=== PATIENT | female | born 1945 | race Caucasian/White ===

== ENCOUNTER 2019-01-09 09:37 | Day surgery (SDC) | payer MEDICARE ==
[2019-01-09] MEDS ORDERED: Lactated Ringers 1,000 ML IV ONE ×2 (09:46→13:25)
[2019-01-09] MEDS ORDERED: Lactated Ringers 1,000 ML IV SCH (10:00)
[2019-01-09] MEDS ORDERED: DIPRIVAN 200 MG/20 ML IV ONE ×3 (11:47→12:22)
[2019-01-09 14:23] LABS: 027 TOX PROD PRESUMPTIVE NEGATIVE (NEGATIVE); TOXIGENIC C. DIFF ORG NEGATIVE (NEGATIVE)
[2019-01-09 16:04] VITALS: BP 160/88; PULSE 79; O2SAT 93
--- NOTE | 2019-01-09 16:56 | XRAY ---
Exam: Air contrast barium enema from 01/09/2019. Total fluoroscopy time: 4.9 minutes. Comparison: None. Indication: 73-year-old female with incomplete colonoscopy, history of diverticulosis and prior hysterectomy. The patient gives a history of occasional rectal bleeding and constipation with some change of recent bowel habits. Findings: 2 supine rx specialist images of the abdomen reveal an unremarkable bowel gas pattern. A mild mid lumbar rotary dextroscoliosis is seen. Mild to moderate multilevel degenerative disc disease is seen throughout the lumbar spine. No hepatosplenomegaly is seen. No suspicious abdominal calcifications are seen. The entire colon was prepared using double contrast technique. I see moderate tortuosity within the sigmoid colon and the right hemicolon. No evidence of obstruction or fixed stenosing lesions are seen within the colon. Some scattered diverticula are noted within the sigmoid colon consistent with diverticulosis. Also, a couple small diverticula are seen within the splenic flexure. No significant intraluminal polypoid masses are seen within the colon. The cecum distended well. No reflux of barium into the distal small bowel was seen. Impression: 1. Mild scattered diverticulosis seen within the left hemicolon. 2. No colon obstruction, abnormal colonic stenosing lesions, or sizable intraluminal colon polyps are seen. 3. Some tortuosity of the colon course was seen within both the ascending colon and sigmoid colon.
--- NOTE | 2019-01-10 08:53 | OP ---
PROCEDURE DATE/TIME: 01/09/2019 1152 PREOPERATIVE DIAGNOSES: 1) Reflux disease. 2) Abdominal pain. 3) Change in bowel function. POSTOPERATIVE DIAGNOSES: 1) Peptic ulcer disease with multiple antral ulcers. 2) Mild gastroesophageal reflux disease. 3) Tortuous redundant colon with diverticulosis. PROCEDURES: 1) EGD with biopsy. 2) Colonoscopy to ascending colon. PROCEDURE PERFORMED BY: Naomy Napoles M.D. ANESTHESIA: MAC. ESTIMATED BLOOD LOSS: Minimal. COMPLICATIONS: None. SPECIMENS: 1) Antral peptic ulcer biopsies; rule out Helicobacter pylori. 2) Stool sent for Clostridium difficile, ova and parasite, and culture. HISTORY: This is a 73 year-old female who presents for EGD and colonoscopy due to GI complaints as well as abdominal pain. She has had a change in bowel function as well as reflux disease. Risks, benefits, alternatives and H&P reviewed with her and confirmed. DESCRIPTION OF PROCEDURE: She was then brought back to the endoscopy suite and laid in the left lateral decubitus position. A complete time out performed. The scope gently introduced into the mouth, oropharynx and down into the esophagus, stomach and duodenum. The duodenum was normal. In the stomach there is an ulcer that is approximately 1.25 cm and then two smaller ulcers more distal to this that are less than 1 cm. None of them are actively bleeding at this time. They appear to be benign. However they are inflamed, active and they do have some surrounding mild gastritis. The remainder of the stomach looks normal except for a few very tiny benign appearing gastric polyps. Outside of this our retroflex view was normal. We then took multiple biopsies by the ulcers and sent these to pathology also to rule out Helicobacter pylori disease. We confirmed hemostasis and then the scope was carefully withdrawn to the distal esophagus. The patient does have some mild reflux changes here. She does not have any gross Esposito's disease. The remainder of the esophagus was normal. The scope was able to be removed. The patient tolerated this part of the procedure well. She was then repositioned for colonoscopy. First a rectal exam was done. The patient does have moderate external hemorrhoidal disease. The scope was then inserted and gently advanced. The prep was satisfactory for exam. However, the patient had an extremely tortuous and redundant colon. At the level of approximately the ascending colon, I was not able to easily advance the scope. We did throughout the procedure attempt patient repositioning and gentle abdominal pressure to help navigate the scope and we were able to get to the level of the ascending colon but not farther. At this point I then carefully withdrew the scope taking a circumferential view and trying to see this amount of colon as best as possible. She did have some liquid stool that we had to suction and irrigate. The prep was satisfactory for review for medium and large lesions. A very small or very flat lesion could be missed from the prep but overall again this was satisfactory. She does have some mild diverticulosis outside of this. The colon mucosa was very healthy and I did not see any obvious polyps or lesions. The scope was then completely withdrawn. The patient tolerated the procedure very well. There were no immediate complications. Due to the colonoscopy being incomplete, I have ordered a barium enema for her. I have also placed her on proton pump inhibitor and Carafate therapy due to the peptic ulcer disease and reflux. She is going to see me in the office to discuss her antral biopsy results as well as her barium enema and then plan for another EGD in approximately three months and tentatively a colonoscopy in approximately five years, sooner if there is something more concerning on the enema that we need to further explore.
[2019-01-10 11:19] LABS: Source: Feces
[2019-01-10 12:15] LABS: Giardia Antigen EIA Negative (Negative)
== END 2019-01-09 16:30 | disposition home or self-care (01) ==
LOC: SDC 09:37
PROVIDERS: ATTEND Surgery
DX: K25.9 Gastric ulcer, unspecified as acute or chronic, without hemorrhage or perforation (principal); K21.9 Gastro-esophageal reflux disease without esophagitis; K57.30 Diverticulosis of large intestine without perforation or abscess without bleeding; K64.4 Residual hemorrhoidal skin tags; R19.4 Change in bowel habit; R10.11 Right upper quadrant pain; E07.9 Disorder of thyroid, unspecified
CPT/HCPCS: 36415; 74270; 87045; 87046; 87177; 87209; 87335; 87493; 99100; J2704

== ENCOUNTER 2019-03-13 09:37 | Day surgery (SDC) | payer MEDICARE ==
[2019-03-13] MEDS ORDERED: Lactated Ringers 1,000 ML IV SCH (10:00)
[2019-03-13] MEDS ORDERED: DIPRIVAN 200 MG/20 ML IV ONE (11:46)
[2019-03-13] MEDS ORDERED: Ketamine HCl 50 MG/ML ONE (11:47)
[2019-03-13 12:57] VITALS: PULSE 53
[2019-03-13 13:20] VITALS: BP 142/66; O2SAT 99
--- NOTE | 2019-03-14 10:04 | OP ---
SURGERY DATE: 03/13/19 SURGERY TIME: 1145 PREOPERATIVE DIAGNOSIS: 1. HISTORY OF PEPTIC ULCER DISEASE. POSTOPERATIVE DIAGNOSIS: 1. GASTRITIS. 2. RESOLVED PEPTIC ULCER DISEASE. PROCEDURE: 1. EGD with biopsy. SURGEON: Dr. Naomy Napoles. ANESTHESIA: MAC. ESTIMATED BLOOD LOSS: Minimal. COMPLICATIONS: None. SPECIMENS: 1. Antral biopsy rule out Helicobacter pylori. PROCEDURE DETAILS: This is a 73 y/o female, who has a history of peptic ulcer disease and abdominal pain, who presents for EGD to ensure ulcer resolution. She has also had some intermittent abdominal pain since starting therapy. Risks, benefits, and alternatives regarding EGD have been discussed with the patient. H&P consent reviewed with her, confirmed. She was then brought back to the endoscopy suite. Laid in the left lateral decubitus position. Complete time-out performed. The scope gently introduced into the mouth, oropharynx, down into the esophagus, stomach, and duodenum. The duodenum is normal. In the stomach, the ulcers have all healed. She only has some residual mild gastritis. This is most significant in the antrum, but it is patchy throughout the stomach. She also has a couple very tiny gastric polyps which are less than 3-4 mm in size, very friendly looking. She has no masses. No other concerning findings. No blood. I took an antral biopsy since she is still symptomatic and sent this to pathology to rule out any Helicobacter pylori infection. This site was hemostatic and then we carefully withdrew the scope. She has some mild reflux changes, but very minimal. No sign of Esposito's disease and no obvious esophagitis. The scope was then completely withdrawn. The patient tolerated the procedure very well. There were no immediate complications. PLAN: Plan will be for another EGD on an as needed basis. She is going to continue her Carafate and proton pump inhibitor therapy and then we will wean her off the Carafate in approximately 1 month and see how she is doing.
== END 2019-03-13 13:29 | disposition home or self-care (01) ==
LOC: SDC 09:37
PROVIDERS: ATTEND Surgery
DX: K29.70 Gastritis, unspecified, without bleeding (principal); K31.7 Polyp of stomach and duodenum; Z87.11 Personal history of peptic ulcer disease
CPT/HCPCS: 99100; J2704

== ENCOUNTER 2021-07-15 15:38 | Emergency (ER) | payer MEDICARE ==
[2021-07-15] MEDS ORDERED: Sodium Chloride 0.9% 1000 ML 1,000 ML IV STA (15:56)
[2021-07-15] MEDS ORDERED: solu-MEDROL 125 MG, Sterile H2O 10 ml 2 ML IV ONE ×2 (15:56)
--- NOTE | 2021-07-15 16:24 | XRAY ---
Indication: Cough. Positive Covid 19. Comparison: June 24, 2017. Portable chest again demonstrates a few incidental calcified granulomas. No focal infiltrate, consolidation, or large effusion. Heart not enlarged. Bony thorax intact again with mild osteopenia and degenerative changes. Impression: Continued nonacute chest with chronic features.
[2021-07-15] MEDS ORDERED: solu-MEDROL ONE ×2 (16:30→16:32)
[2021-07-15] MEDS ORDERED: Sodium Chloride 0.9% 1000 ML 1,000 ML ONE (16:30)
[2021-07-15] MEDS ORDERED: Sterile H2O 10 ml IJ ONE (16:32)
[2021-07-15 16:33] LABS: Absolute Neutrophil Ct (ANC) 3.31 (1.4-6.9); Basophil (Absolute #) 0.01 (0-0.4); Eosinophil (Absolute #) 0.12 (0-0.5); Hemoglobin 12.5 gm/dl (12.0-16.0); Lymphocyte (Absolute #) 1.71 (1.0-4.6); Lymphocytes % 28.4 % (24.0-44.0); Mean Cell Volume 92.2 fl (78-100); Mean Corpuscular Hemoglobin 30.3 pg (26-32); Mean Corpuscular Hgb Concent. 32.9 g/dl (32-36); Mean Platelet Volume 9.3 fl (7.5-11.0); Monocyte (Absolute #) 0.87 (0.0-1.3); Monocytes % 14.5 % (0.0-12.0); Neutrophil % 54.9 % (36.0-66.0); Platelet Count 221 K/mm3 (150-450); Red Blood Count 4.12 M/mm3 (4.1-5.4); Red Cell Distribution Width 12.3 % (11.5-14.0)
[2021-07-15 16:38] LABS: INR 1.05 (0.8-3.0); PROTIME 12.4 SECONDS (9.4-12.5)
[2021-07-15 16:51] LABS: ALBUMIN 4.3 g/dL (3.5-5.0); ALKALINE PHOSPHATASE 72 U/L (38-126); ANION GAP 12.8 MEQ/L (5-15); BLOOD UREA NITROGEN 16 mg/dL (7-17); CHLORIDE 89 mmol/L (98-107); Carbon Dioxide 28 mmol/L (22-30); Creatinine 1 0.88 mg/dL (0.52-1.04); EST GLOMERULAR FILTRATION RATE > 60.0 ML/MIN; Glucose 110 mg/dL (74-106); NT PRO BNP 446 pg/mL (0-900); Potassium 3.6 mmol/L (3.5-5.1); SGOT/AST 23 U/L (14-36); SGPT/ALT 17 U/L (0-35); SODIUM 126 mmol/L (137-145); Total Protein 6.9 g/dL (6.3-8.2)
[2021-07-15 17:11] VITALS: BP 148/53; PULSE 52; O2SAT 96
--- NOTE | 2021-07-15 17:35 | ERPHSYRPT ---
- History of Present Illness Time Seen by Provider: 07/15/21 16:00 Source: patient Exam Limitations: no limitations Patient Subjective Stated Complaint: pt here for cough, congestion, weakness for 4 days now, pt states her and spouse were covid postive today, Triage Nursing Assessment: pt alert, resp easy, nasal congestion, dry cough. Physician History: Patient is a 75-year-old female who presents with a complaint of cough and some shortness of breath. She was diagnosed this morning at Dr. Cortez office with COVID 19. Her who is 79 years old likewise have COVID he also has severe dementia. They have been sick for 2 days. Timing/Duration: day(s) (3) Cough Quality/Degree: dry cough Possible Cause: illness exposure Modifying Factors: Improves With: coughing Associated Symptoms: cough, headache, No fever, No chills Allergies/Adverse Reactions: codeine Allergy (Mild, Verified 07/15/21 16:05) latex Allergy (Mild, Verified 07/15/21 16:05) Rash Home Medications: Cetirizine HCl [Zyrtec] 1 tab PO DAILY 04/17/16 [History] Docusate Sodium 100 mg [Colace 100 MG] 100 mg PO BID 04/17/16 [History] Furosemide 40 mg [Lasix 40 MG] 20 mg PO BID 04/17/16 [History] Levothyroxine Sodium 50 Mcg [Synthroid 50 Mcg] 1 tab PO DAILY 04/17/16 [History] Losartan/Hydrochlorothiazide [Losartan-Hctz 100-25 mg Tab] 1 tab PO DAILY 04/17/16 [History] Lysine 1 tab PO DAILY 04/17/16 [History] Meloxicam 7.5 mg [Mobic 7.5 MG] 1 tab PO DAILY 04/17/16 [History] Pravastatin Sodium 1 tab PO DAILY 04/17/16 [History] Metoprolol Tartrate 25 mg [Lopressor 25MG Tab] 25 mg PO BID 10/09/19 [History] Potassium Chloride [K-Dur] 10 meq PO BID 10/09/19 [History] Sucralfate 1 gm [Carafate 1 GM] 1 g PO BID PRN 10/09/19 [History] Hx Tetanus, Diphtheria Vaccination/Date Given: No Hx Influenza Vaccination/Date Given: Yes Hx Pneumococcal Vaccination/Date Given: No Immunizations Up to Date: Yes Travel Risk - International Travel Have you traveled outside of the country in past 3 weeks: No - Coronavirus Screening Are you exhibiting any of the following symptoms?: Yes Symptoms: Cough: New Onset, Loss of Taste or Smell Close contact with a COVID-19 positive Pt in past 14-21 Days: Yes - Vaccine Status Have you recieved a Covid-19 vaccination: No - Review of Systems Constitutional: No Fever, No Chills Eyes: No Symptoms Ears, Nose, & Throat: Nose Congestion, Nose Discharge Respiratory: Cough, No Dyspnea Cardiac: No Chest Pain, No Edema, No Syncope Abdominal/Gastrointestinal: No Abdominal Pain, No Nausea, No Vomiting, No Diarrhea Genitourinary Symptoms: No Dysuria Musculoskeletal: No Back Pain, No Neck Pain Skin: No Rash Neurological: No Dizziness, No Focal Weakness, No Sensory Changes Psychological: No Symptoms Endocrine: No Symptoms All Other Systems: Reviewed and Negative - Past Medical History Pertinent Past Medical History: Yes Neurological History: No Pertinent History ENT History: Cataracts, Glaucoma Cardiac History: Hypertension, Myocardial Infarction ([place]) Respiratory History: Bronchitis, COPD, Pneumonia Endocrine Medical History: Hypothyroidism Musculoskeletal History: Arthritis, Osteoarthritis GI Medical History: Polyps, Ulcer History: No Pertinent History Psycho-Social History: No Pertinent History Female Reproductive Disorders: Fibroids Other Medical History: 2 lumps removed from breasts, nerve pain in lateral upper R thigh, anemia, kidney probs in high school, degenerative disc disease. MIx 2. peptic and duodenal ulcer in past - Past Surgical History Past Surgical History: Yes Neuro Surgical History: No Pertinent History Cardiac: Cardiac Catheterization Respiratory: No Pertinent History Gastrointestinal: No Pertinent History Genitourinary: Other Musculoskeletal: Orthopedic Surgery Female Surgical History: Hysterectomy, Dilation & Curettage Other Surgical History: knee surgery, tympanoplasty, "stretched bladder or urethra". 2 breast lumpectomies - Social History Smoking Status: Never smoker Exposure to second hand smoke: No Drug Use: none Patient Lives Alone: No - Female History Hx Last Menstrual Period: psot - Nursing Vital Signs Nursing Vital Signs: Initial Vital Signs Temperature 97.0 F 07/15/21 15:51 Pulse Rate 55 L 07/15/21 15:51 Respiratory Rate 18 07/15/21 15:51 Blood Pressure 163/59 07/15/21 15:51 O2 Sat by Pulse Oximetry 96 07/15/21 15:51 Pain Scale Pain Intensity 0 - Physical Exam General Appearance: mild distress, alert Eye Exam: PERRL/EOMI, eyes nml inspection Ears, Nose, Throat Exam: normal ENT inspection, TMs normal, pharynx normal, moist mucous membranes Neck Exam: normal inspection, non-tender, supple, full range of motion Respiratory Exam: normal breath sounds, lungs clear, No respiratory distress Cardiovascular Exam: regular rate/rhythm, normal heart sounds Gastrointestinal/Abdomen Exam: soft, No tenderness Back Exam: normal inspection, No CVA tenderness, No vertebral tenderness Extremity Exam: normal inspection, normal range of motion Neurologic Exam: alert, oriented x 3, cooperative, normal mood/affect, sensation nml, No motor deficits Skin Exam: normal color, warm, dry, No rash Lymphatic Exam: No adenopathy SpO2: 96 - Course Nursing assessment & vital signs reviewed: Yes EKG Interpreted by Me: RATE (54), Sinus Rhythm, LAFB, Non-specific ST Changes - Radiology Exams Chest X-ray Interpretation: Other (No acute findings) Ordered Tests: Active Orders 24 hr Category Date Time Status EKG-ER Only STAT Care 07/15/21 15:56 Active IV Insertion STAT Care 07/15/21 15:56 Active CHEST 1 VIEW (PORTABLE) Stat Exams 07/15/21 15:57 Completed CBC W DIFF Stat Lab 07/15/21 16:15 Completed CMP Stat Lab 07/15/21 16:15 Completed D-DIMER QUANTITATIVE Stat Lab 07/15/21 16:15 Completed Lactic Acid Stat Lab 07/15/21 15:56 Completed NT PRO BNP Stat Lab 07/15/21 16:15 Completed PROTIME WITH INR Stat Lab 07/15/21 16:15 Completed TROPONIN Q3H Lab 07/15/21 16:15 Completed TROPONIN Q3H Lab 07/15/21 19:00 Ordered TROPONIN Q3H Lab 07/15/21 22:00 Ordered TROPONIN Q3H Lab 07/16/21 01:00 Ordered TROPONIN Q3H Lab 07/16/21 04:00 Ordered UA W/RFX UR CULTURE Stat Lab 07/15/21 15:57 Ordered Medication Summary Discontinued Medications Generic Name Dose Route Start Last Admin Trade Name Freq PRN Reason Stop Dose Admin Methylprednisolone Sodium 0 mg 07/15/21 15:56 07/15/21 16:33 Succinate 125 mg/ Sterile IV 07/15/21 15:57 125 mg Water 2 ml STAT ONE Administration Sodium Chloride 1,000 mls @ 999 mls/hr 07/15/21 15:56 07/15/21 16:33 Sodium Chloride 0.9% 1000 Ml IV 07/15/21 16:56 999 mls/hr .Q1H1M STA Administration Sodium Chloride Confirm 07/15/21 16:30 Sodium Chloride 0.9% 1000 Ml Administered 07/15/21 16:31 Dose 1,000 mls @ ud .ROUTE .STK-MED ONE Methylprednisolone Sodium Succinate Confirm 07/15/21 16:30 Methylprednis Sod Succ 125 Mg/2 Ml Vial Administered 07/15/21 16:31 Dose 125 mg .ROUTE .STK-MED ONE Methylprednisolone Sodium Succinate Confirm 07/15/21 16:32 Methylprednis Sod Succ 125 Mg/2 Ml Vial Administered 07/15/21 16:33 Dose 125 mg .ROUTE .STK-MED ONE Sterile Water Confirm 07/15/21 16:32 Water For Injection,Sterile 10 Ml Vial Administered 07/15/21 16:33 Dose 10 ml IJ .STK-MED ONE Lab/Rad Data: Laboratory Result Diagrams 07/15/21 16:15 07/15/21 16:15 Laboratory Results 07/15/21 07/15/21 07/15/21 Range/Units 16:15 16:15 16:15 WBC (4.0-10.5) K/mm3 RBC (4.1-5.4) M/mm3 Hgb (12.0-16.0) gm/dl Hct (35-47) % MCV (78-100) fl MCH (26-32) pg MCHC (32-36) g/dl RDW (11.5-14.0) % Plt Count (150-450) K/mm3 MPV (7.5-11.0) fl Gran % (36.0-66.0) % Eos # (Auto) (0-0.5) Absolute Lymphs (auto) (1.0-4.6) Absolute Monos (auto) (0.0-1.3) Lymphocytes % (24.0-44.0) % Monocytes % (0.0-12.0) % Eosinophils % (0.00-5.0) % Basophils % (0.0-0.4) % Absolute Granulocytes (1.4-6.9) Basophils # (0-0.4) PT 12.4 (9.4-12.5) SECONDS INR 1.05 (0.8-3.0) D-Dimer 350 (215-500) ng/mL Sodium 126 L (137-145) mmol/L Potassium 3.6 (3.5-5.1) mmol/L Chloride 89 L (98-107) mmol/L Carbon Dioxide 28 (22-30) mmol/L Anion Gap 12.8 (5-15) MEQ/L BUN 16 (7-17) mg/dL Creatinine 0.88 (0.52-1.04) mg/dL Estimated GFR > 60.0 ML/MIN Glucose 110 H (74-106) mg/dL Lactic Acid (0.4-2.0) Calcium 9.0 (8.4-10.2) mg/dL Total Bilirubin 0.60 (0.2-1.3) mg/dL AST 23 (14-36) U/L ALT 17 (0-35) U/L Alkaline Phosphatase 72 (38-126) U/L Troponin I < 0.012 (0.000-0.034) ng/mL NT-Pro-B Natriuret Pep 446 (0-900) pg/mL Serum Total Protein 6.9 (6.3-8.2) g/dL Albumin 4.3 (3.5-5.0) g/dL 07/15/21 07/15/21 Range/Units 16:15 15:56 WBC 6.0 (4.0-10.5) K/mm3 RBC 4.12 (4.1-5.4) M/mm3 Hgb 12.5 (12.0-16.0) gm/dl Hct 38.0 (35-47) % MCV 92.2 (78-100) fl MCH 30.3 (26-32) pg MCHC 32.9 (32-36) g/dl RDW 12.3 (11.5-14.0) % Plt Count 221 (150-450) K/mm3 MPV 9.3 (7.5-11.0) fl Gran % 54.9 (36.0-66.0) % Eos # (Auto) 0.12 (0-0.5) Absolute Lymphs (auto) 1.71 (1.0-4.6) Absolute Monos (auto) 0.87 (0.0-1.3) Lymphocytes % 28.4 (24.0-44.0) % Monocytes % 14.5 H (0.0-12.0) % Eosinophils % 2.0 (0.00-5.0) % Basophils % 0.2 (0.0-0.4) % Absolute Granulocytes 3.31 (1.4-6.9) Basophils # 0.01 (0-0.4) PT (9.4-12.5) SECONDS INR (0.8-3.0) D-Dimer (215-500) ng/mL Sodium (137-145) mmol/L Potassium (3.5-5.1) mmol/L Chloride (98-107) mmol/L Carbon Dioxide (22-30) mmol/L Anion Gap (5-15) MEQ/L BUN (7-17) mg/dL Creatinine (0.52-1.04) mg/dL Estimated GFR ML/MIN Glucose (74-106) mg/dL Lactic Acid 0.8 (0.4-2.0) Calcium (8.4-10.2) mg/dL Total Bilirubin (0.2-1.3) mg/dL AST (14-36) U/L ALT (0-35) U/L Alkaline Phosphatase (38-126) U/L Troponin I (0.000-0.034) ng/mL NT-Pro-B Natriuret Pep (0-900) pg/mL Serum Total Protein (6.3-8.2) g/dL Albumin (3.5-5.0) g/dL - Progress Progress: unchanged Air Movement: good Progress Note: 07/15/21 17:40 We discussed both Jacob Ervin and the Birgit Ervin with Dr. King she will be discharged and arrangements are being made for them to return tomorrow for the first infusion of monoclonal antibodies. They also will have a oxygen saturation meter for home use Blood Culture(s) Obtained: No Antibiotics given: Yes Discussed with Dr.: Other (Dr Lopes) - Departure Departure Disposition: Home Clinical Impression: COVID-19 Condition: Stable Critical Care Time: No Referrals: TIFFANY LOPEZ MD [Primary Care Provider] - Follow up/PCP as directed Instructions: Coronavirus Disease 2019 (COVID-19) (DC) Prescriptions: Dexamethasone 4 mg [Decadron 4 MG] 8 mg PO DAILY 7 Days #14 tablet Doxycycline Hyclate 100 mg [Vibramycin 100 MG] 100 mg PO BID #14 tab
== END 2021-07-15 18:03 | disposition home or self-care (01) ==
LOC: ED 15:38
DX: U07.1 COVID-19 (principal); R05.9 Cough, unspecified; R06.02 Shortness of breath; R51.9 Headache, unspecified; I10 Essential (primary) hypertension; J44.9 Chronic obstructive pulmonary disease, unspecified; Z79.52 Long term (current) use of systemic steroids; Z79.899 Other long term (current) drug therapy
CPT/HCPCS: 36000; 36415; 71045; 80053; 83605; 83880; 84484; 85025; 85379; 85610; 93005; 96360; 96374; 99284; J2930